=== PATIENT | male | born 1955 | race Caucasian/White ===

== ENCOUNTER 2023-03-10 10:40 | Inpatient (IN) | payer OTHER, MEDICAID, SELFPAY ==
[2023-03-06 16:05] VITALS: BMI 26.6
[2023-03-10] VITALS (19 sets, daily range): BP systolic 114–190; BP diastolic 64–95; PULSE 55–80; RESP 6–18; TEMP 36–36.7; O2SAT 92–100; BMI 26.6
--- NOTE | 2023-03-10 | DI.RAD.S_ITS ---
PROCEDURE: XR LUMBAR SPINE 2-3V INDICATIONS: L4-5 TLIF TECHNIQUE: 3 views of the lumbar spine were acquired. COMPARISON: None. FINDINGS: Bones: 5 [id number] vertebrae are present. Posterior fixation of L4-5 with intervening discectomy and disc spacer placement. There is normal bony alignment. No vertebral body compression fractures. No suspicious bony lesions. Soft tissues: Overlying bowel gas pattern is normal. No suspicious soft tissue calcifications. IMPRESSION: Postoperative changes of discectomy and posterior fixation at L4-5. Dictated by: Benjamin Schroeder M.D. on 03/10/2023 at 14:37 Approved by: Benjamin Schroeder M.D. on 03/10/2023 at 14:38
--- NOTE | 2023-03-10 11:17 | PM.PREOP ---
Pre-operative Note Interval Note History & Physical reviewed/Exam performed by Physician: Yes Changes to H&P: No
[2023-03-10] MEDS: ACETAMINOPHEN 325 MG TABLET 975 MG PO (11:21)
[2023-03-10] MEDS: LACTATED RINGERS 1,000 ML 42 ML IV (11:21)
[2023-03-10] MEDS: CEFAZOLIN 2 GM/100 ML PREMIX 100 ML IV ×2 (12:30→21:20)
--- NOTE | 2023-03-10 12:52 | SUR.OPER ---
Prone on spine table, head in foam head support, padded chest and pelvic supports, gel pad at knees, lower legs supported by pillows; nipples, genitalia and toes free of pressure, arms secured on foam padded arm boards at <90 degrees abduction. Tape over blanket at thigh secured to table. gel pad between bilateral heels.
[2023-03-10] MEDS: BUPIVACAINE LIPOSOME 266 MG/20 ML VIAL INJ (13:24)
[2023-03-10] MEDS: BUPIVACAINE 0.25% (PF) 60 ML, EPINEPHrine 0.15 MG INJ (13:24)
--- NOTE | 2023-03-10 14:23 | P.OP_ITS ---
Operative Date/Time/Diagnoses Date of procedure: 03/10/23 Time of procedure: 12:00 Pre-op diagnosis: 1. L4-5 foramen stenosis with radiculopathy 2. L4-5 far lateral disc herniation Post-op diagnosis: same Procedure & Clinicians Procedure: 1. L4-5 Postero-lateral and posterior interbody fusion 2. L4-5 interbody cage placement. 3. L4-5 decompressive laminectomy with bilateral facetecomies 4. L4-5 Posterior non-segmental instrumentation 5. Lincoln of bone marrow from iliac crest 6. Utilization of microsurgical technique and operating microscope Same procedure as scheduled: Yes Indications: Patient has been having chronic back pain and worsening lumbar radiculopathy. Patient failed multiple conservative management with worsening pain weakness and numbness in his lower extremity. Patient has been having difficulty performing activity of daily living. After discussing risks benefits of treatment options, patient elected proceed with surgery. Surgeon: Nena Henderson Cash Management Specialist: Grecia White Click Yes if Unassisted: No Anesthesia Type: General Operative Notes Closure Type: primary Specimen(s): none sent Estimated Blood Loss (mL): 50 Blood products transfused: none Procedure in detail: Patient was seen in the preoperative area. Risks and benefits of the surgery was discussed with the patient. Informed consent was obtained from the patient and placed in the chart. Surgical site was marked. Patient was taken to the operative room. General anesthesia was administered. Prophylactic antibiotic was given to the patient less than 30 min before the incision was made. Patient was placed into a prone position on the Kishore table. Patient's back was then prepped and draped in the sterile fashion. Time-out was performed at this time. Using AP and lateral C-arm imaging the interval between L4-5 was identified and marked on patient's back. A 2 inch incision 2 in from midline was made on the left side first. The fascia was incised in line with skin incision. Globus MARS retractors was placed inside the incision and docked onto the L4 lamina. Using microsurgical technique and operating microscope, a L4 laminectomy and for L4-5 facetectomy was performed using a Kerrison rongeur. The laminectomy and facetectomy was performed in order to decompress patient's cauda equina as well as the nerve roots exiting at the L4-5 level. The disc space at L4-5 was identified. And a total diskectomy was performed at L4-5 level. The endplates were decorticated using a rasp and shaver. The total diskectomy and decortication was performed at L4-5 level in order to to accomplish a L4-5 fusion. The local bone from the laminectomy and facetectomy was saved for local bone grafting. After the total diskectomy and decortication was completed, Trifecta bone graft material was combined with local bone that was harvested earlier. At this time, a separate skin is incision was made over the iliac crest. A Jamshidi needle was inserted into the iliac crest through a separate skin incision. 5 cc of bone marrow aspiration was obtained through the separate skin incision using a Jamshidi needle from the iliac crest. The bone marrow aspiration was combined with local bone and the DBM bone grafting material. The bone grafting material was placed into the L4-5 interbody space along with a expandable cage. The cage was expanded to its maximum height using the torque limiting screwdriver. At this time a mirror image incision was made on the left side. The fascia was incised in line with the skin incision. Globus MARS retractor was inserted and docked onto the L4-5 posterolateral gutter. Using the power drill, posterior- lateral decortication was performed at L4-5 level until bleeding cortical bone was identified. The remaining bone grafting material was placed into the L4-5 posterior lateral gutter he order to accomplish posterolateral fusion at the L4- 5 level. Using the double C-arm technique, pedicle screws were placed into the L4-5 pedicles bilaterally. This was done by placing the Jamshidi needle into the pedicles, then placing the guidewires over the Jamshidi needle, and finally placing the cannulated screws over the guidewires bilaterally. After the pedicle screws were placed, 2 titanium rods was locked into the heads of the pedicle screws using locking caps and torque limiting screwdriver. After all the hardware was placed, and confirmed with AP and lateral C-arm imaging, the wound was then irrigated with sterile normal saline and packed with Ray-Gris gauze for 3 min to accomplish hemostasis. After the gauze was removed the deep fascia was closed with #1 Vicryl suture. The subcutaneous layer was closed with 2-0 Vicryl. The skin was closed with skin heather. Patient tolerated the procedure well. There were no complications. The Operation could not have been safely performed without compromising the technical result or length of the procedure, without the assistance of a skilled surgical aide. The surgical aide was medically necessary for proper positioning, retraction and manipulation of instruments, proper exposure, surgical preparation, and manipulation of tissue. Complications: none Post-operative Condition: stable Disposition: PACU Plan for aftercare: Admit to inpatient hospital
[2023-03-10] MEDS: HYDROMORPHONE 1 MG INJ IV ×5 (14:45→15:15)
[2023-03-10] MEDS: hydrOXYzine 50 MG/ML INJ 25 MG IM (14:48)
[2023-03-10] MEDS: LORazepam 2 MG/ML INJ 0.25 MG IV (15:21)
[2023-03-10] MEDS: OXYCODONE 5 MG/5 ML ORAL SOLUTION PO ×2 (15:50→15:57)
--- NOTE | 2023-03-10 17:14 | PC.NURSE ---
Patient is comfortable he was given pain medication prior to coming up to the floor and denies pain at this time. His incision has sutures and heather, with ss and xeroform, covered with metopor tape and gauze. He denies any numbness or tingling and he just has some scratches to his ankles from scratching. Patient did do meth on Monday and states that he has been doing it for years but is slowing down using. He is tolerating his ivf well.
[2023-03-10] MEDS: LACTATED RINGERS 1,000 ML 125 ML IV (18:53)
[2023-03-10] MEDS: CYCLOBENZAPRINE 10 MG TABLET 5 MG PO (21:21)
[2023-03-11] MEDS: OXYCODONE IR 10 MG TABLET PO ×2 (00:11→08:45)
[2023-03-11] MEDS: HYDROMORPHONE 0.5 MG INJ IV ×2 (03:58→14:38)
[2023-03-11 04:16] VITALS: BP 120/66; PULSE 63; RESP 16; TEMP 37; O2SAT 91
[2023-03-11] MEDS: CEFAZOLIN 2 GM/100 ML PREMIX 100 ML IV (04:40)
[2023-03-11 08:00] VITALS: BP 114/68; PULSE 66; RESP 16; TEMP 37.2; O2SAT 94
[2023-03-11] MEDS: LOSARTAN 50 MG TABLET 100 MG PO (08:44)
[2023-03-11] MEDS: AMLODIPINE 5 MG TABLET 10 MG PO (08:44)
[2023-03-11] MEDS: ATORVASTATIN 20 MG TABLET 40 MG PO (08:45)
[2023-03-11] MEDS: CYCLOBENZAPRINE 10 MG TABLET 5 MG PO ×2 (08:45→21:55)
[2023-03-11] MEDS: hydroCHLOROthiazide 25 MG TABLET PO (08:45)
[2023-03-11] MEDS: DOCUSATE 100 MG CAPSULE PO ×2 (08:45→21:54)
--- NOTE | 2023-03-11 08:45 | CM.DANOTE ---
DCP: Case received, EMR reviewed and met with patient. Introduced self and role. Was able to obtain information regarding patient's baseline activity level prior to surgery. DCP assessment completed with information currently available. Patient is a 67 year old male who admitted yesterday morning to the care of the orthopedic team. PCP: Dr. Pereira. Payer: confirmed: [employer]age. Patient came to the hospital via private vehicle for a surgical procedure. Patient had L4-5 posterior interbody fusion. Patient has history of L-4-5 foramen stenosis with radiculopathy, disc herniation. Met with patient in his room. He was sitting up in bed, alert, pleasant. Confirmed that he resides in [place] with his spouse, Debra Lemus. He also has a 15 year old, he is retired. At his baseline, he uses no DME. He has not yet worked with P.T. P: DCP to continue to follow. Patient is hopeful for home, will see how he does with P.T. Violet Xavier RN/Drapery Maker Discharge Planning/Care Management CM Discharge Assessment Start: 03/11/23 08:44 Freq: Status: Active Protocol: Document 03/11/23 08:44 (Rec: 03/11/23 08:45 [id number]) Discharge Planning Assessment Assigned Engineering Technical Analyst Violet Xavier RN/Drapery Maker Advance Directives? No History Provided By Patient,Medical Record Prior Living Arrangements House Household Members spouse Type of transporation used prior to Drives own vehicle admit Independent with ADL's Yes Is patient alert and oriented? Yes Caregiver for Another Yes: Has a 15 year old child Barriers to Discharge No Discharge Plan Home Transportation Arrangement Spouse Referrals Initiated None needed Whiteboard Updated in Patient Room with Yes name and ext. # of Engineering Technical Analyst Review Status In Process Next Review Type Continued Stay Review Pre-Anesthesia Assessment Start: 03/06/23 16:05 Freq: Status: Active Protocol: Document 03/06/23 16:05 [email or web address] (Rec: 03/06/23 16:11 AK [id number]) Pre-Anesthesia Assessment Patient Information Reviewed Via Phone Assessment Assessment Completed With Patient H&P Completed Within 30 Days Yes: 02/21/23 Diagnostic Results BMP/CMP,CBC,EKG Primary Care Provider Vijay Pereira Seen Specialist in Last 12 Months Yes Specialist Seen Orthopedist Preferred Language Bermudian Height 6 ft Weight 196 lb Body Mass Index (BMI) 26.6 Hearing Ability Normal Visual Impairment Partially Limited Visual Assist None Dentition Type Teeth, Natural Present Hx Anesthesia Reactions No Hx Family Anesthesia Reaction No Hx Malignant Hyperthermia No Hx Blood Transfusions No Hx Blood Transfusion Reaction No Anesthesia Review Requested No Wool Washer No alcohol intake current alcohol intake frequency holidays/special occasions only Smoking Status Former smoker how long ago did patient quit smoking 2014 Substance Use Type methamphetamine Comment 03/07/23 reported used meth last week Musculoskeletal Symptoms Back Pain,Numbness,Radiating Pain into Limb,Tingling History of Falling (Recent or History of Yes ) Comment 2021 last fall Patient is completely paralyzed or No completely immobile Ambulatory Aid None/bed rest/nurse assist Gait/Transferring Normal/bedrest/immobile Mental Status Oriented to own ability Is patient on oxygen? No Does patient have HUTTON/SOB Yes: due to abdominal surgery Suspected Sleep Apnea Yes Currently Taking a Beta Tj No Can You Climb a Flight of Stairs Without Yes SOB Hx Chest Pain No Hx SOB Yes Hx Syncope or Dizziness Yes: dizziness when stands quickly Anti-Coagulant Therapy Yes: Aspirin Has a Senior It Assistant Yes Senior It Assistant name [employer] Hx Pacemaker/ICD No Pacemaker Rep Required? No Diet Type At Home Regular,Lactose Intolerant Dysphagia Yes: getting tested Urinary Catheter Present No Hx Urinary Self Catheterization No Diabetes No Hx Drug Resistant Organism Yes: MRSA-left middle finger Presence of External or Internal Medical Yes: Cardiac stent Devices Have you had any close contact with No someone diagnosed with COVID-19? Are you experiencing any of these No symptoms symptoms? Received a COVID vaccine? Yes Marital Status Lives With spouse Support System Spouse Does the Patient Have Assistance After Yes Surgery Patient Discharge Plan Description Return Home Feels Safe in Current Environment Yes Been Physically Hurt or Threatened By a No Person in Current Environment Do you have thoughts of harming yourself None or others? Are you currently considering suicide? No Do you have a plan to hurt yourself or No Plan others? Do You Have Any Spiritual Beliefs That No May Affect Your HC Choices? Do You Have Any Cultural Practices That No May Affect Your HC Choices? Who Can We Speak to About Patient's Care Debra Holly Health Care Proxy/Next of Kin Debra Holly Emergency Contact Name Debra Holly Advance Directives? No PAC Instructions Assistance for 24 hours post- op,Do not shave/clip surgical site,Medications to take/avoid ,Nasal antibiotic,No ETOH/ petroleum product on skin DOS, NPO,Post-op transportation,Pre -surgical wash,Sturdy shoes/ comfortable clothes,Do not bring valuables and remove jewelry Stop Bang Assessment Do you snore loudly (louder than talking Yes or loud enough to be heard through closed doors) Do you often feel tired, fatigued or Yes sleepy during the daytime Has anyone ever observed you stop Yes breathing while sleeping? Do you have, or are you being treated Yes for, high blood pressure Is your BMI more than 35 kg/m2 No Age over 50 Yes Estimated neck circumference greater Yes than 40cm or 16in Gender male Yes Result Positive
--- NOTE | 2023-03-11 09:35 | PT.IIE ---
Current Diagnoses Other spondylosis with radiculopathy, lumbar region (03/10/23) Spinal stenosis, lumbar region with neurogenic claudication (03/10/23) Arthrodesis status (03/10/23) Surgery Performed Operation Date: 03/10/23 12:15 Actual Procedures p L4-5 TLIF - Nena Henderson MD Surgical History (Last Updated 03/07/23 @ 14:10 by Keyon Schrader, RN) H/O arthroscopy of left knee H/O hernia repair History of endovascular stent graft for abdominal aortic aneurysm Status post right rotator cuff repair Medical History (Last Updated 03/07/23 @ 14:13 by Keyon Schrader, JAMES) Asthma DJD (degenerative joint disease) Dysphagia Eye disorder Hx MRSA infection Hyperlipidemia Hypertension Methamphetamine abuse Migraine Physical Therapy Inpatient Evaluation/Re-Eval M1 PT/OT-IP Prior Functional Status Start: 03/11/23 12:35 Freq: NEEDED Status: Active Protocol: Document 03/11/23 09:35 AB (Rec: 03/11/23 12:50 AB [id number]) Medical Review Prior Functional Status Medical History Reviewed Yes Communication able to make needs known Mobility and Gait Pt stated that he is independent with all mobilities and ambulation without AD Social History Household Members spouse Living Arrangements House Number of Floors (Floors) One Floor Number of Stairs To Enter/Railing? 4 steps without rails to enter Home Environment Standard Height Toilet,Tub/ Shower Home Equipment Front Wheel Walker,Straight Cane,Crutches,Tub Transfer Bench,Hand Held Shower M2 PT-IP Current Condition Start: 03/11/23 12:35 Freq: NEEDED Status: Active Protocol: Document 03/11/23 09:35 AB (Rec: 03/11/23 12:50 AB [id number]) Physical Therapy Current Condition Current Condition Evaluation Date 03/11/23 Treatment Diagnosis s/p L4-5 TLIF; difficulty in walking Onset Date 03/10/23 M3 PT-IP Subjective Start: 03/11/23 12:35 Freq: NEEDED Status: Active Protocol: Document 03/11/23 09:35 AB (Rec: 03/11/23 12:50 AB [id number]) Subjective Physical Therapy Visit Type Type Initial Evaluation Visit Start Time 09:35 Visit Stop Time 11:00 Total Visit Minutes 20 Notes pt seen for split visits: 935 am to 945 and 1050 to 11am Number of ROOFING FOREMAN Visits 0 Physical Therapy Visit Comments Patient Comments agreeable to do PT Therapy Pain Assessment Pain When Pain Assessed At Rest Pain Present Pain Present Pain Reported Location Bilateral Back Intensity 9 Scale Used Numeric (0 - 10) Description Cramping Pain Management Techniques Apply Cold,Distraction, Modification of Treatment,Re- positioning,Timing of Activity with Medications M4 PT-IP Mobility and Gait Start: 03/11/23 12:35 Freq: NEEDED Status: Active Protocol: Document 03/11/23 09:35 AB (Rec: 03/11/23 12:50 AB [id number]) PT-Bed Mobility Assessment Rolling Type of Rolling Log Rolling Level of Assist Minimal Assistance Supine to Sit Supine to Sit Minimal Assistance Sit to Supine Sit to Supine Maximum Assistance,2 Person Assistance,Head of Bed Elevated,Bedrails PT-Transfer Assessment Sit to and From Stand Sit to and from Stand Minimal Assistance,1 Person Assistance,Use of Upper Extremities Equipment Transfer Assistive Device Gait Belt,Front Wheeled Walker Orthotic/Prosthetic Devices or Brace: No Transfers Transfer Destination Chair Transfer Technique ambulated Comments Mobility Comments pt just sitting on the EOB with NAC after toileting. pt completed supine to sit but unable to complete log roll. HOB elevated for safety. pt required max A x 2 and max cues. Obtained PLOF and home set up from pt. pt c/o 9/10 pain. educated pt on back precautions and log roll bed mobility. checked back on pt after rounds meeting. pt agreed to do PT. continues to c/o increase back pain. reviewed back precautions with pt and able to recall 2/3. completed log roll supine to sit min A and max cues. able to sit on EOB CGA. completed sit to stand min A and cues. ambulated to the chair using FWW ~ 12 ft min A and cues for steadiness. pt agreed to sit up on the chair. positioned pt on the chair. ice pack provided. call light and table placed within reach. BANANA LOADER to see pt. set up caregiver training at 230pm with spouse this afternoon. Gait Assessment Gait Gait Assistance Required: Minimum Assistance Distance (Feet) 12 Able to Maintain Weight Bearing Status Yes During Gait Assistive Devices Assistive Device Gait Belt,Front Wheeled Walker Orthotic/Prosthetic Devices or Brace: No Gait Deviations General Gait Pattern Decreased Stride Length, Decreased Feet Clearance,Step- to Gait Factors Limiting Gait Function Factors Limiting Gait Function Decreased Activity Tolerance, Decreased Strength,Difficulty Following Directions,Limited Range of Motion,Pain,Poor Balance,Poor Safety Awareness PT-Balance Assessment Sitting Balance and Reactions Static Sitting Balance Ability Good Dynamic Sitting Balance Ability Good Standing Balance and Reactions Static Standing Balance Ability Fair Dynamic Standing Balance Ability Fair Device Used FWW M5 PT-IP Objective Assessments Start: 03/11/23 12:35 Freq: NEEDED Status: Active Protocol: Document 03/11/23 09:35 AB (Rec: 03/11/23 12:50 AB [id number]) Orientation Orientation/Cognition Level of Alertness Alert Orientation Name,Place,Situation Language Function Ability No Deficits Noted Safety Awareness Decreased Safety Awareness Memory Description Short Term Impaired Gross Range of Motion Lower Extremity ROM Assessment Within Functional Limits Strength Lower Extremity Strength Assessment Bilaterally Impaired Hip 4-/5 Knee 4-/5 Coordination Assessment Gross Coordination Gross Coordination WNL Muscle Tone Muscle Tone WNL Yes M6 PT-IP Treatment Start: 03/11/23 12:35 Freq: NEEDED Status: Active Protocol: Document 03/11/23 09:35 AB (Rec: 03/11/23 12:50 AB [email or web address]) Physical Therapy Treatment Education Education Provided Precautions,Weight Bearing Status,Post-Op Packet,Safety M7 PT-IP Assessment and Plan Start: 03/11/23 12:35 Freq: NEEDED Status: Active Protocol: Document 03/11/23 09:35 AB (Rec: 03/11/23 12:50 AB [email or web address]) PT Summary Assessment and Plan Potential Rehabilitation Potential Fair Status of Condition at Evaluation Evolving Summary Impairments Pain,ROM,Strength,Balance, Coordination,Sensation,Tone, Cognition,Bed Mobility, Transfers,Gait,Activity Tolerance Assessment Summary pt is a 67y/o male who underwent L4-5 TLIF. pt was independent with all mobilities without AD prior to sx but currently requiring min to max A x2 for bed mobility, min A for transfers and ambulation using FWW but only ambulated ~ 12 ft with c/ o increase back pain affecting mobility. caregiver training set up this afternoon at 230pm. will continue to assess progress for safe d/c plan. Goals Bed Mobility Goal Independent Transfer Goal Independent,Front Wheeled Walker Gait Goal Independent,Front Wheel Walker Gait Distance 200 Other Goals up/down 4 steps using SPC + TAIL WORKER CGA Days to Meet Goals 5 Frequency of Treatment Frequency Of Treatment Twice a Day Treatment Plan Physical Therapy Treatment Plan Bed Mobility Training,Transfer Training,Gait Training, Therapeutic Exercise,Balance Retraining,Post Op Education, Discharge Planning,Hot or Cold Pack,Neuromuscular Re-ed, Coordination Retraining,Manual Therapy Precautions Lumbar Precautions Log Roll,No Twisting,Limit Bending,Lifting Restriction of 10 lbs,Gait Belt above Incisional Area Recommendations To Nursing Amount of Assist Needed 1 Person Assist Discharge Recommendations PT Discharge Recommendations Home with 02/01 Assist Available,Home Health Transportation Needs at Discharge Private Vehicle,Wheelchair/ Cabulance
--- NOTE | 2023-03-11 10:36 | PM.PNPO.1 ---
Subjective Subjective Date Patient Seen: 03/11/23 Time Patient Seen: 10:36 Interval history: Pt lying in bed, awakens easily to voice. C/o RLE pain; had LLE pain prior to surgery, and this has resolved. RLE pain is new. He has been OOB to the bathroom and has talked to but not yet worked w/ PT. Exam Vital Signs (past 8 hours): - 03/11/23 04:16 03/11/23 08:00 Temperature 98.6 F 98.9 F Pulse Rate 63 66 Respiratory Rate 16 16 Blood Pressure 120/66 114/68 Pulse Oximetry 91 94 Oxygen Flow Rate 0 Oxygen Delivery Method Room Air Oxygen Flow Rate 0 Narrative Exam Narrative: 5/5 strength throughout LLE. 4/5 hip flexors, quadriceps, hamstrings, PF; 5/5 DF, EHL on right. Sensation to light touch intact throughout BLE. Calves soft, compressible, nontender. Dressing placed intraoperatively is CDI. PFS Medical History (Updated 03/07/23 @ 14:13 by Keyon Schrader RN) Asthma DJD (degenerative joint disease) Dysphagia Eye disorder Hx MRSA infection Hyperlipidemia Hypertension Methamphetamine abuse Migraine Surgical History (Updated 03/11/23 @ 10:38 by Grecia White PA-C) H/O arthroscopy of left knee H/O hernia repair History of endovascular stent graft for abdominal aortic aneurysm Status post right rotator cuff repair Social History household members: spouse Smoking Status: Former smoker alcohol intake: current Assessment & Plan Post-op Assessment and plan (1) S/P lumbar fusion: Assessment and Plan narrative: RLE radiculopathy following surgery. Will start IV dexamethasone, and if this helps control pain will d/c w/ steroid taper. Discussed w/ pt d/c home tomorrow if he progresses w/ PT, and he is agreeable to this. Postoperative Procedures: Procedures Operation Date: 03/10/23 12:15 Actual Procedure Side Surgeon p L4-5 TLIF Nena Henderson MD Postoperative day: 1 Quality VTE Deep Vein Thrombosis/Pulmonary Embolism Present on Admission: No
[2023-03-11] MEDS: ACETAMINOPHEN 325 MG TABLET 650 MG PO (11:05)
[2023-03-11] MEDS: DEXAMETHASONE 4 MG/ML VIAL IV ×2 (11:05→18:35)
[2023-03-11 12:00] VITALS: BP 125/64; PULSE 74; RESP 16; O2SAT 97
--- NOTE | 2023-03-11 12:19 | ST.IPCSEOM ---
Visit Care Team Role Provider Type Nena Henderson MD Admit Provider Physician Attending Provider Referring Provider Specialty: Orthopedics Orthopedic Surgery Address: [address] [place] [address], [place], [address] Email: [email or web address] Current Diagnoses Other spondylosis with radiculopathy, lumbar region (03/10/23) Spinal stenosis, lumbar region with neurogenic claudication (03/10/23) Arthrodesis status (03/10/23) Past Medical History (Last Updated 03/07/23 @ 14:13 by Keyon Schrader RN) Asthma (Medical) DJD (degenerative joint disease) (Medical) Dysphagia (Medical) Eye disorder (Medical) Hx MRSA infection (Medical) left middle finger infection 2004 Hyperlipidemia (Medical) Hypertension (Medical) Methamphetamine abuse (Medical) Migraine (Medical) Speech-Language Pathology Swallow Evaluation SENIOR SAS DEVELOPER Clinical Swallow Evaluation Start: 03/11/23 11:33 Freq: Status: Active Protocol: Document 03/11/23 11:33 MG (Rec: 03/11/23 12:14 MG [id number]) Clinical Swallow Evaluation Session Time Visit Start Time 11:00 Visit Stop Time 11:30 Total Visit Minutes 30 Visit Information Visit Number 1 Setting Assessment Location Acute Care Visit Type Note Type Initial evaluation Patient Information Identification Type Name,Wristband History Pt was brought to the hospital for a lumbar fusion surgery on 03/10/2023. The material handler 2nd shift nursing staff noted concerns with swallowing and that he coughed on water as well as was having difficulties taking medications. ST evaluation was requested due to these concerns. Subjective Observations Pt was sitting in chair next to bedside. Pt has just finished working with PT. Pt was agreeable to ST evaluation . Of note, the pt has an upcoming appointment with a gastroentrologist on May 18 due to esophageal concerns . Pt notes issues swallowing began in April of 2022 and feels like food is getting stuck in his esophagus. Pt fully aware of safe and unsafe foods/textures for him and utilizes safe swallowing strategies (i.e., small bites/ sips, eating slow). Reported by Patient/Caregiver Other Symptoms Choking,Coughing,Difficulty swallowing liquids,Difficulty swallowing pills,Difficulty swallowing solids Current Diet Regular (IDDSI 7) Baseline Feeding Method Independent in self-feeding The IDDSI Framework Protocol: IDDSI.1 Objective Assessment Mental Status Alert,Responsive,Cooperative Oral Integrity WFL Dentition Missing teeth,Decay Lip Function Within normal limits Observation of Lips at Rest Symmetrical Pucker Within normal limits Lip Retraction Within normal limits Alternating Pucker/Lip Retraction Within normal limits Tongue Function Within normal limits Observations of Tongue at Rest Within normal limits Tongue Protrusion Within normal limits Tongue Retraction Within normal limits Tongue Lateralization Within normal limits Jaw Function Within normal limits Observation of Jaw at Rest Within normal limits Jaw Opening Within normal limits Jaw Closing Within normal limits Jaw Lateralization Within normal limits Jaw Protrusion Within normal limits Jaw Retraction Within normal limits Hard/Soft Palate Function Within normal limits Observations of Hard/Soft Palate Within normal limits Nasality Within normal limits Respiratory Sufficiency Within normal limits Food and Liquid Trials Position During Assessment Upright (90 degrees) Liquids Trialed Thin (IDDSI 0) Solid Trials Regular (IDDSI 7) Administration Type Cup consecutive sips,Straw, Self-feeding Oral Impairment Within functional limits Oral Phase Comments No anterior spillage noted. Mastication was effective. No oral residue noted. Pharyngeal Impairment Within functional limits Pharyngeal Phase Comments Laryngeal palpation indicated adequate hyolaryngeal movement and anterior hyoid excursion. No overt s/sx of aspiration noted. Pt took medication with room temperature water with no difficulties at that time. Fatigue/Endurance Endurance WNL The IDDSI Framework Protocol: IDDSI.1 Findings Swallowing Function Within functional limits Severity of Swallow Impairment Within functional limits Contributing Factors to Swallow Reduced oral strength/ Impairment coordination/sensation, Excessive pharyngeal residue Prognosis Good Comment Pt does not demonstrate dysphagia at this time. Most likely has esophageal stricture or dysfunction playing a factor into swallowing issues. The pt is very aware of what he can tolerate for solids/liquids. Recommendations Instrumental Assessment No Swallowing Treatment No Recommended Solids Regular (IDDSI 7) Recommended Liquids Thin (IDDSI 0) Safety Precautions/Swallowing Reduce distractions,Remain Recommendations upright (90 degrees) during all oral intake,Small bites and sips when eating,Slow rate ; swallow between bites Medication Recommendations As Tolerated Discharge Recommendations Home Referrals Recommended Referrals Gastroenterology Education Patient/Caregiver Education Described results of evaluation,Patient expressed understanding of evaluation, Patient expressed agreement with goals & treatment plans, Patient expressed understanding of safety precautions,Patient expressed understanding of feeding recommendations
--- NOTE | 2023-03-11 14:35 | PT.IPTN ---
Current Diagnoses Other spondylosis with radiculopathy, lumbar region (03/10/23) Spinal stenosis, lumbar region with neurogenic claudication (03/10/23) Arthrodesis status (03/10/23) Surgery Performed Operation Date: 03/10/23 12:15 Actual Procedures p L4-5 TLIF - Nena Henderson MD Physical Therapy Treatment Note M2 PT-IP Current Condition Start: 03/11/23 12:35 Freq: NEEDED Status: Active Protocol: Document 03/11/23 09:35 AB (Rec: 03/11/23 12:50 AB [id number]) Physical Therapy Current Condition Current Condition Evaluation Date 03/11/23 Treatment Diagnosis s/p L4-5 TLIF; difficulty in walking Onset Date 03/10/23 M3 PT-IP Subjective Start: 03/11/23 12:35 Freq: NEEDED Status: Active Protocol: Document 03/11/23 14:35 AB (Rec: 03/11/23 16:25 AB [email or web address]) Subjective Physical Therapy Visit Type Type Treatment Note Visit Start Time 14:35 Visit Stop Time 15:25 Total Visit Minutes [address] INTERPRETER Visits 0 Physical Therapy Visit Comments Patient Comments agreeable to do PT Therapy Pain Assessment Pain When Pain Assessed At Rest Pain Present Pain Present Pain Reported Location Bilateral Back Intensity 4 Scale Used Numeric (0 - 10) Pain Management Techniques Distraction,Modification of Treatment,Re-positioning, Timing of Activity with Medications M4 PT-IP Mobility and Gait Start: 03/11/23 12:35 Freq: NEEDED Status: Active Protocol: Document 03/11/23 14:35 AB (Rec: 03/11/23 16:25 AB [id number]) PT-Bed Mobility Assessment Rolling Type of Rolling Log Rolling Level of Assist Standby Assistance Supine to Sit Supine to Sit Standby Assistance Sit to Supine Sit to Supine Standby Assistance PT-Transfer Assessment Sit to and From Stand Sit to and from Stand Contact Guard Assistance,1 Person Assistance,Use of Upper Extremities Equipment Transfer Assistive Device Gait Belt Orthotic/Prosthetic Devices or Brace: No Transfers Transfer Destination Toilet Transfer Technique ambulated Transfer Ability Level of Assist Contact Guard Assistance,1 Person Assistance,Use of Upper Extremities Comments Mobility Comments pt sitting on the chair. spouse in room for caregiver training. nurse came in to give pt pain meds and administered IV dilaudid. caregiver training conducted. reviewed back precautions with pt and spouse. pt was able to recall precautions. educated spouse on use of safety belt and how to assist pt. spouse was able to put safety belt on pt and assisted pt with sit to stand. spouse was able able to assist pt with ambulation using FWW to the toilet and assisted pt with toileting needs. pt ambulated from the toilet towards the sink with spouse assisting and able to maintain standing CGA from spouse while completing handwashing. pt ambulated towards the stairs using FWW ~ 125 ft with spouse assisting. pt rested on the w/c. PT educated pt and spouse regarding stair climbing. pt completed up/down 3 steps holding on to L rail with B hands and spouse was able to assist pt. pt c/o dizziness afterwards. pt sat on the w/c and assisted back to his room . continues to c/o increase dizziness. BP checked: 125/64 . unable to obtain O2 sat due to cold fingers. informed NAC and made nurse aware. completed sit to stand from the chair CGA and step transfer to bed using FWW CGA. pt c/o blurry vision upon standing. nurse in room. pt completed sit to supine SBA. BP checked: 128/55, O2 sat: 97-100%. pt feeling better after a few minutes and wants to continue caregiver training . informed spouse on how to assist pt with log roll bed mobility if needed. pt demonstrated log roll supine<> sit again SBA. pt able to complete without cues. positioned pt in bed. call light and table placed within reach. informed pt regarding pain control and to be sure to ask for pain meds and avoid getting IV pain meds because pt is not going home with IV pain meds. Pt and spouse understood. Gait Assessment Gait Gait Assistance Required: Contact Guard Assist Distance (Feet) 125 Able to Maintain Weight Bearing Status Yes During Gait Assistive Devices Assistive Device Gait Belt,Front Wheeled Walker Orthotic/Prosthetic Devices or Brace: Yes Gait Deviations General Gait Pattern Decreased Stride Length, Decreased Feet Clearance Factors Limiting Gait Function Factors Limiting Gait Function Decreased Activity Tolerance, Decreased Strength,Limited Range of Motion,Pain,Poor Balance,Poor Safety Awareness Stair Climbing Assessment Evaluation Level of Assist On Stairs Contact Guard Assistance Devices Stair Climbing Assistive Devices Left Railing Technique/Endurance Stair Climbing Direction Ascend and Descend Stair Climbing Technique Step to Step Number of Steps Climbed 3 Stair Climbing Set # Repetitions (reps) 1 M5 PT-IP Objective Assessments Start: 03/11/23 12:35 Freq: NEEDED Status: Active Protocol: Document 03/11/23 09:35 AB (Rec: 03/11/23 12:50 AB [email or web address]) Orientation Orientation/Cognition Level of Alertness Alert Orientation Name,Place,Situation Language Function Ability No Deficits Noted Safety Awareness Decreased Safety Awareness Memory Description Short Term Impaired Gross Range of Motion Lower Extremity ROM Assessment Within Functional Limits Strength Lower Extremity Strength Assessment Bilaterally Impaired Hip 4-/5 Knee 4-/5 Coordination Assessment Gross Coordination Gross Coordination WNL Muscle Tone Muscle Tone WNL Yes M6 PT-IP Treatment Start: 03/11/23 12:35 Freq: NEEDED Status: Active Protocol: Document 03/11/23 14:35 AB (Rec: 03/11/23 16:25 AB [email or web address]) Physical Therapy Treatment Education Education Provided Precautions,Safety M7 PT-IP Assessment and Plan Start: 03/11/23 12:35 Freq: NEEDED Status: Active Protocol: Document 03/11/23 14:35 AB (Rec: 03/11/23 16:25 AB [email or web address]) PT Summary Assessment and Plan Potential Rehabilitation Potential Good Summary Impairments Pain,ROM,Strength,Balance, Coordination,Sensation,Tone, Cognition,Bed Mobility, Transfers,Gait,Activity Tolerance Progress Towards Goals Slow Progress due to Pain Assessment Summary pt progress with mobility and able to ambulate using FWW CGA ~ 125 ft, also completed stair climbing using L rail CGA. Caregiver training conducted and spouse was able to assist pt safely with mobility. pt continues to have pain control issues but was able to complete PT session. pt may go home when medically stable. Goals Bed Mobility Goal Independent Transfer Goal Independent,Front Wheeled Walker Gait Goal Independent,Front Wheel Walker Gait Distance 200 Other Goals up/down 4 steps using SPC + MANAGER MACHINE CGA Days to Meet Goals 5 Frequency of Treatment Frequency Of Treatment Twice a Day Treatment Plan Physical Therapy Treatment Plan Bed Mobility Training,Transfer Training,Gait Training, Therapeutic Exercise,Balance Retraining,Post Op Education, Discharge Planning,Hot or Cold Pack,Neuromuscular Re-ed, Coordination Retraining,Manual Therapy Precautions Lumbar Precautions Log Roll,No Twisting,Limit Bending,Lifting Restriction of 10 lbs,Gait Belt above Incisional Area Recommendations To Nursing Amount of Assist Needed 1 Person Assist Discharge Recommendations PT Discharge Recommendations Home with Assistance Transportation Needs at Discharge Private Vehicle
[2023-03-11 16:00] VITALS: BP 134/72; PULSE 76; RESP 17; O2SAT 93
[2023-03-11 20:35] VITALS: BP 142/75; PULSE 71; RESP 18; TEMP 37.4; O2SAT 97
[2023-03-11] MEDS: SENNOSIDES 8.6 MG TABLET 17.2 MG PO (21:54)
[2023-03-12 00:10] VITALS: BP 134/64; PULSE 67; RESP 18; TEMP 37.4; O2SAT 93
[2023-03-12] MEDS: DEXAMETHASONE 4 MG/ML VIAL IV ×2 (00:57→06:06)
[2023-03-12 07:25] VITALS: BP 140/73; PULSE 78; RESP 17; TEMP 36.8; O2SAT 93
[2023-03-12] MEDS: DOCUSATE 100 MG CAPSULE PO (08:21)
[2023-03-12] MEDS: CYCLOBENZAPRINE 10 MG TABLET 5 MG PO (08:21)
[2023-03-12] MEDS: ACETAMINOPHEN 325 MG TABLET 650 MG PO ×2 (08:21→15:34)
[2023-03-12] MEDS: hydroCHLOROthiazide 25 MG TABLET PO (08:21)
[2023-03-12] MEDS: AMLODIPINE 5 MG TABLET 10 MG PO (08:21)
[2023-03-12 08:22] VITALS: BP 140/73; PULSE 78
[2023-03-12] MEDS: ATORVASTATIN 20 MG TABLET 40 MG PO (08:22)
[2023-03-12] MEDS: LOSARTAN 50 MG TABLET 100 MG PO (08:22)
[2023-03-12 09:00] VITALS: BP 150/80; PULSE 83; RESP 17; TEMP 36.2; O2SAT 99
--- NOTE | 2023-03-12 09:27 | PM.DS.1 ---
History of Present Illness History of Present Illness Date Patient Seen: 03/12/23 Time Patient Seen: 09:27 Chief complaint: INPT Narrative: Operative Date/Time/Diagnoses Date of procedure: 03/10/23 Time of procedure: 12:00 Pre-op diagnosis: 1. L4-5 foramen stenosis with radiculopathy 2. L4-5 far lateral disc herniation Post-op diagnosis: same Procedure & Clinicians Procedure: 1. L4-5 Postero-lateral and posterior interbody fusion 2. L4-5 interbody cage placement. 3. L4-5 decompressive laminectomy with bilateral facetecomies 4. L4-5 Posterior non-segmental instrumentation 5. [place] of bone marrow from iliac crest 6. Utilization of microsurgical technique and operating microscope Same procedure as scheduled: Yes Indications: Patient has been having chronic back pain and worsening lumbar radiculopathy. Patient failed multiple conservative management with worsening pain weakness and numbness in his lower extremity.? Patient has been having difficulty performing activity of daily living.? After discussing risks benefits of treatment options, patient elected proceed with surgery. Surgeon: Nena Henderson Cloud Engineer: Grecia White Click Yes if Unassisted: No Anesthesia Type: General Operative Notes Closure Type: primary Specimen(s): none sent Estimated Blood Loss (mL): 50 Blood products transfused: none Discharge Providers Provider Date of admission: 03/10/23 10:40 Discharge Date: 03/13/23 Consults: 03/07/23 14:23 Consult to Client Services Analyst Routine Comment: 03/10/23 16:32 Consult to Occupational Therapy Evaluate & Treat Comment: Physician Instructions: Evaluate and treat Consult to Physical Therapy Evaluate & Treat Comment: Physician Instructions: Evaluate and Treat 03/11/23 09:13 Consult to Speech Therapy Evaluate & Treat Comment: failed Nursing bedside swallow evaluation Physician Instructions: Evaluate and treat Discharge provider: Grecia White PA-C Summary Hospital Course Discharge Diagnosis: L4-5 foramen stenosis with radiculopathy, L4-5 far lateral disc herniation; s/p lumbar fusion Hospital Course: Mr Stanley's hospital course was remarkable for poor pain control and RLE radiculopathy. He was started on steroids. On the morning of POD# 2 he was feeling better but wanted to stay another night in the hospital; he says that he went home too soon following AAA repair. He would like to continue to work w/ inpt PT and ensure his pain remains well controlled prior to discharge. He is eating and voiding without difficulty. He has been evaluated by PT throughout his stay and they feel he is appropriate for discharge home with his spouse. Exam Vital Signs (past 8 hours): - 03/12/23 08:22 03/12/23 07:25 03/12/23 09:00 Temperature 98.3 F 97.1 F L Pulse Rate 78 78 83 Respiratory Rate 17 17 Blood Pressure 140/73 140/73 150/80 H Pulse Oximetry 93 99 Oxygen Flow Rate 0 0 Oxygen Delivery Method Room Air Oxygen Flow Rate 0 Narrative Exam Narrative: 5/5 strength in hip flexors, quadriceps, hamstrings, DF, PF, EHL bilaterally. Sensation to light touch intact throughout BLE. Calves soft, compressible, nontender. Dressing placed intraoperatively is CDI. [facility] Medical History (Updated 03/07/23 @ 14:13 by Keyon Schrader RN) Asthma DJD (degenerative joint disease) Dysphagia Eye disorder Hx MRSA infection Hyperlipidemia Hypertension Methamphetamine abuse Migraine Surgical History (Updated 03/11/23 @ 10:38 by Grecia White PA-C) H/O arthroscopy of left knee H/O hernia repair History of endovascular stent graft for abdominal aortic aneurysm Status post right rotator cuff repair Social History household members: spouse Smoking Status: Former smoker alcohol intake: current Discharge Assessment & Plan Assessment and Plan Assessment: L4-5 foramen stenosis with radiculopathy, L4-5 far lateral disc herniation; s/p lumbar fusion Plan of Treatment: Discharge home 03/13/2023. Pt does not need to be seen by ortho prior to d/c unless pt or nursing have concerns. Multimodal pain control, f/u in office in 2 weeks as scheduled. Discharge Plan Discharge Plan Patient Disposition: Home Discharge orders & Medications Prescriptions: New acetaminophen 325 mg Tablet 650 mg PO Q6H PRN (Reason: Fever/Mild Pain (1-3)) Qty: 240 0RF docusate sodium 100 mg Capsule 100 mg PO BID PRN (Reason: constipation) Qty: 60 1RF hydroxyzine pamoate 25 mg Capsule 25 mg PO Q4HR PRN (Reason: muscle spasm) Qty: 60 0RF oxycodone 5 mg tablet 5 mg PO Q4-6H PRN (Reason: pain (scale score 7-10)) Qty: 60 0RF Rx Instructions: May take 1-2 tabs (5-10mg) q 4-6 hrs methylprednisolone [Methylpred DP] 4 mg tablets,dose pack See Rx Instructions .ROUTE .COMPLEX Qty: 21 0RF Rx Instructions: orally per package directions Continued atorvastatin 40 mg Tablet 40 mg PO DAILY amlodipine 10 mg Tablet 10 mg PO DAILY hydrochlorothiazide 25 mg Tablet 25 mg PO DAILY losartan 100 mg Tablet 100 mg PO DAILY cyclobenzaprine 5 mg Tablet 5 mg PO BID tadalafil 20 mg Tablet 20 mg PO DAILY PRN (Reason: Sexual Activity) aspirin 81 mg Capsule 81 mg PO DAILY Follow up/Referrals: Nena Henderson MD [Physician] - As previously scheduled (Follow up with Kofi Koenig PA-C, on 03/21/2023 @ 1:[address] [facility] office in [place].) Diet/Activity/Treatments Diet: Diet as Tolerated Activity: No deep bending or twisting at the waist. No lifting more than 10 pounds. Cold/Heat Therapy: Heating pad to low back as needed for pain. Skin/Wound/Dressing Care Report to your healthcare provider any signs of infection, such as:: chills, fever, night sweats, unusual drainage and unusual redness Dressing: May shower. Keep dressing as dry as possible. If dressing becomes wet or dirty, remove and replace with clean, dry gauze. No bathing or otherwise soaking incisions. Do not apply any creams, lotions, or ointments to incisions. Visit Report/Discharge Packet Instructions: DI for Transforaminal Lumbar Interbody Fusion, DI for Prescription Opioid Use Stand Alone Forms: Patient Portal/API, Stroke Signs & Symptoms, Surgery Discharge Quality VTE Deep Vein Thrombosis/Pulmonary Embolism Present on Admission: No
--- NOTE | 2023-03-12 10:59 | PT.IPTN ---
Current Diagnoses Other spondylosis with radiculopathy, lumbar region (03/10/23) Spinal stenosis, lumbar region with neurogenic claudication (03/10/23) Arthrodesis status (03/10/23) Surgery Performed Operation Date: 03/10/23 12:15 Actual Procedures p L4-5 TLIF - Nena Henderson MD Physical Therapy Treatment Note M2 PT-IP Current Condition Start: 03/11/23 12:35 Freq: NEEDED Status: Active Protocol: Document 03/11/23 09:35 AB (Rec: 03/11/23 12:50 AB [id number]) Physical Therapy Current Condition Current Condition Evaluation Date 03/11/23 Treatment Diagnosis s/p L4-5 TLIF; difficulty in walking Onset Date 03/10/23 M3 PT-IP Subjective Start: 03/11/23 12:35 Freq: NEEDED Status: Active Protocol: Document 03/12/23 12:07 AB(2) (Rec: 03/12/23 12:23 AB(2) [id number]) Subjective Physical Therapy Visit Type Type Treatment Note Visit Start Time 10:34 Visit Stop Time 10:59 Total Visit Minutes 25 Physical Therapy Visit Comments Patient Comments Pt presents seated in chair and is agreeable to PT. He denies having any pain currently. Therapy Pain Assessment Pain When Pain Assessed At Rest Pain Present Pain Present Denied Pain M4 PT-IP Mobility and Gait Start: 03/11/23 12:35 Freq: NEEDED Status: Active Protocol: Document 03/12/23 12:07 AB(2) (Rec: 03/12/23 12:23 AB(2) [id number]) PT-Transfer Assessment Sit to and From Stand Sit to and from Stand Independent,Use of Upper Extremities Equipment Transfer Assistive Device Gait Belt Transfers Transfer Destination Chair,Toilet Transfer Ability Level of Assist Independent,Use of Upper Extremities Comments Mobility Comments Pt is able to transfer from chair independently, though uses UEs to perform STS. He then ambulated 5ft to toilet, where he was able to transfer, perform pericare independently, and perform hand hygiene independently, demonstrating good balance and proper use of FWW. After returning from gait and stairs training, the pt returned to chair with all needs met and call light within reach. RN was notified of pt's progress. Gait Assessment Gait Gait Assistance Required: Standby Assistance Distance (Feet) 250 Able to Maintain Weight Bearing Status Yes During Gait Assistive Devices Assistive Device Gait Belt,Front Wheeled Walker Orthotic/Prosthetic Devices or Brace: Yes Gait Deviations General Gait Pattern Decreased Stride Length, Decreased Feet Clearance, Flexed Trunk Factors Limiting Gait Function Factors Limiting Gait Function Decreased Activity Tolerance, Decreased Strength,Limited Range of Motion,Pain,Poor Balance,Poor Safety Awareness Stair Climbing Assessment Evaluation Level of Assist On Stairs Contact Guard Assistance Devices Stair Climbing Assistive Devices Left Railing Technique/Endurance Stair Climbing Direction Ascend and Descend Stair Climbing Technique Step to Step Number of Steps Climbed 3 Stair Climbing Set # Repetitions (reps) 1 PT-Balance Assessment Sitting Balance and Reactions Static Sitting Balance Ability Good Dynamic Sitting Balance Ability Good Standing Balance and Reactions Static Standing Balance Ability Good Dynamic Standing Balance Ability Fair Device Used FWW M5 PT-IP Objective Assessments Start: 03/11/23 12:35 Freq: NEEDED Status: Active Protocol: Document 03/11/23 09:35 AB (Rec: 03/11/23 12:50 AB [id number]) Orientation Orientation/Cognition Level of Alertness Alert Orientation Name,Place,Situation Language Function Ability No Deficits Noted Safety Awareness Decreased Safety Awareness Memory Description Short Term Impaired Gross Range of Motion Lower Extremity ROM Assessment Within Functional Limits Strength Lower Extremity Strength Assessment Bilaterally Impaired Hip 4-/5 Knee 4-/5 Coordination Assessment Gross Coordination Gross Coordination WNL Muscle Tone Muscle Tone WNL Yes M6 PT-IP Treatment Start: 03/11/23 12:35 Freq: NEEDED Status: Active Protocol: Document 03/12/23 12:07 AB(2) (Rec: 03/12/23 12:23 AB(2) [id number]) Physical Therapy Treatment Education Education Provided Precautions,Safety M7 PT-IP Assessment and Plan Start: 03/11/23 12:35 Freq: NEEDED Status: Active Protocol: Document 03/12/23 12:07 AB(2) (Rec: 03/12/23 12:23 AB(2) [id number]) PT Summary Assessment and Plan Potential Rehabilitation Potential Good Status of Condition at Evaluation Stable Summary Impairments Pain,ROM,Strength,Balance, Coordination,Sensation,Tone, Cognition,Bed Mobility, Transfers,Gait,Activity Tolerance Progress Towards Goals Safe For Discharge Assessment Summary The pt demonstrates good progress with his ability to perform functional mobility. He is able to transfer independently, and shows good static and dynamic standing balance. The pt was able to tolerate a longer distance of ambulation (250ft) with FWW with SBA, but requires occasional cues to maintain FWW near him and for proper posture. The pt demonstrates he is safe to discharge to home, but would continue to benefit from skilled PT until the day of discharge. Goals Bed Mobility Goal Independent Transfer Goal Independent,Front Wheeled Walker Gait Goal Independent,Front Wheel Walker Gait Distance 200 Other Goals up/down 4 steps using SPC + COMMUTATOR OPERATOR CGA Days to Meet Goals 5 Frequency of Treatment Frequency Of Treatment Twice a Day Treatment Plan Physical Therapy Treatment Plan Bed Mobility Training,Transfer Training,Gait Training, Therapeutic Exercise,Balance Retraining,Post Op Education, Discharge Planning,Hot or Cold Pack,Neuromuscular Re-ed, Coordination Retraining,Manual Therapy Precautions Lumbar Precautions Log Roll,No Twisting,Limit Bending,Lifting Restriction of 10 lbs,Gait Belt above Incisional Area Recommendations To Nursing Amount of Assist Needed Standby Assistance Discharge Recommendations PT Discharge Recommendations Home with Assistance Transportation Needs at Discharge Private Vehicle
[2023-03-12] MEDS: DEXAMETHASONE 4 MG/ML VIAL PO (11:57)
[2023-03-12] MEDS: OXYCODONE IR 10 MG TABLET PO ×2 (11:57→15:34)
[2023-03-12] MEDS: hydrOXYzine pamoate 25 MG CAPSULE PO (11:57)
--- NOTE | 2023-03-12 12:49 | CM.DPC ---
Addendum entered by RESHMA Arellano 03/12/23 15:43: IMM delivered as patient was leaving to d/c home. SL Original Note: DCP Continued: SOFTWARE TEST AUTOMATION ENGINEER reviewed EMR. Per PT, patient cleared for home with spouse. D/c order in. From PT, patient worried about d/c home due to pain management. SOFTWARE TEST AUTOMATION ENGINEER and JAMES Rosas entered room to discuss concerns with patient. Patient sitting in chair and reports he's worried about pain management at home and wants to stay another night. JAMES Rosas answered questions re: meds ordered for d/c. SOFTWARE TEST AUTOMATION ENGINEER explained his order was in and he's considered medically cleared for home. SOFTWARE TEST AUTOMATION ENGINEER answered his questions and concerns in regards to insurance. Patient agreed to d/c today with after his medication concerns and questions were answered by RN. Patient confirms no other needs at this time. Plan: patient to d/c home this afternoon with spouse. No needs identified at this time. CM team will continue to follow as needed. RESHMA Arellano
[2023-03-12 13:29] LABS: Appearance Urine UA CLEAR; Bilirubin Urine UA NEGATIVE (NEGATIVE); Color Urine UA YELLOW; Glucose Urine UA NEGATIVE (Negative); Ketones Urine UA NEGATIVE (NEGATIVE); Leukocyte Esterase Urine UA NEGATIVE (NEGATIVE); Nitrite Urine UA NEGATIVE (Negative); Occult Blood Urine UA NEGATIVE (Negative); Protein Urine UA NEGATIVE (Negative); Specific Gravity Urine UA 1.015 (1.000-1.035); Urobilinogen Urine UA 0.2 E.U./dL (0.2)
[2023-03-12 13:43] LABS: Bacteria Urine None Seen; Culture Indicated Urine Cult Not Indicated; RBC Urine None Seen (0-5/HPF); Squamous Epithelial Cell Urine None Seen (0-5/HPF); Urine Comments N; WBC Urine None Seen (0-5/HPF)
== END 2023-03-12 16:00 | disposition home or self-care (01) | DRG 455 ==
PROVIDERS: Admitting Provider Orthopaedic Surgery Orthopaedic Surgery of the Spine; Referring Provider Orthopaedic Surgery Orthopaedic Surgery of the Spine; Visit Provider Orthopaedic Surgery Orthopaedic Surgery of the Spine
PROC: 0SG00AJ Fusion of Lumbar Vertebral Joint with Interbody Fusion Device, Posterior Approach, Anterior Column, Open Approach (ICD-10-PCS; principal; 2023-03-10 12:15)
DX: M51.16 Intervertebral disc disorders with radiculopathy, lumbar region (principal); M48.062 Spinal stenosis, lumbar region with neurogenic claudication; M47.26 Other spondylosis with radiculopathy, lumbar region; G89.18 Other acute postprocedural pain; E78.5 Hyperlipidemia, unspecified; I10 Essential (primary) hypertension; Z87.891 Personal history of nicotine dependence
CPT/HCPCS: 72100; 76000; 81001; 92610; 97162; 97530; C1713; C1831; C9290; J0171; J0690; J1100; J1170; J2060; J2250; J2405; J2704; J3010; J3410